=== PATIENT | male | born 1950 | race Caucasian/White ===

== ENCOUNTER 2023-03-18 18:25 | Inpatient (IN) | payer OTHER, SELFPAY ==
[2023-03-18] VITALS (9 sets, daily range): BP systolic 119–165; BP diastolic 64–84; BMI 25.4; BMI 24.6
[2023-03-18 12:41] LABS: % Basophils 0.4 % (0-2); % Eosinophils 5.4 % (0-6); % Immature Granulocytes 0.3 % (0-0.5); % Lymphocytes 20.5 % (20.5-51.1); % Monocytes 9.4 % (1.7-9.3); Absolute Eosinophils 0.4 10^3/uL (0-0.7); Absolute Lymphocytes 1.5 10^3/uL (1.2-3.4); Absolute Monocytes 0.7 10^3/uL (0.1-0.6); Absolute Neutrophils 4.7 10^3/uL (1.4-6.5); Hematocrit 39.7 % (39.0-52.0); Hemoglobin 13.4 g/dL (13.0-18.0); Mean Corp Hgb Conc. 33.8 g/dL (33.0-37.0); Mean Corpuscular Hgb 28.6 pg (27.0-31.0); Mean Corpuscular Volume 84.6 fL (80.0-94.0); Mean Platelet Volume 9.3 fL (7.4-10.4); Nucleated Red Blood Cells % 0 % (-); Platelet Count 220 10^3/uL (130-400); Red Blood Cell Count 4.69 10^6/uL (4.70-6.10); Red Cell Dist. Width 13.2 % (11.5-14.5); White Blood Cell Count 7.4 10^3/uL (4.8-10.8)
[2023-03-18 13:16] LABS: ALT (SGPT) 17 U/L (0-50); AST (SGOT) 22 U/L (17-59); Albumin 4.2 g/dl (3.5-5.0); Alkaline Phosphatase 94 U/L (38-126); Blood Urea Nitrogen 23 mg/dl (9-20); Calcium 9.3 mg/dl (8.4-10.2); Carbon Dioxide 24 mmol/L (22-30); Chloride 102 mmol/L (98-107); Glucose 173 mg/dl (70-99); Potassium 4.4 mmol/L (3.5-5.1); Sodium 134 mmol/L (135-145); Total Bilirubin 1.1 mg/dl (0.2-1.3); Total Protein 6.9 g/dl (6.3-8.2); eGFR 44.93
--- NOTE | 2023-03-18 14:10 | EDRN ---
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
--- NOTE | 2023-03-18 14:52 | ED.GENMED ---
History of Present Illness
General
Chief Complaint: Anal/Rectal Problem
Source: patient
Exam Limitations: none
Time Seen by Provider: 03/18/23 14:09
Nursing documentation reviewed up to this point in time: agreed with
Travel History
Have you had any contact with someone who has COVID-19?: No
Do you have any symptoms of coronavirus? Fever > 100 degrees, chills, cough, shortness of breath, sore throat, loss of taste or smell, muscle aches, or headache?: No
History of Present Illness
History of Present Illness:
The patient is a 72-year-old man reports that he has had at least 3 months of rectal bleeding and pain. Patient reports that today he got very concerned because the bleeding was much more in volume. He denies chest pain or shortness of breath. He
denies blood thinners. He reports over 50 years of smoking. He reports he last had a colonoscopy about 10 years ago and is due for one but is hesitant to get it due to the prep. He also reports that occasionally his stools are very irregular and
are light yellow with mucus in them. He denies abdominal pain. Patient is adamantly convinced he has rectal cancer. He reports he called GI but they cannot see him until this July so he did not want to wait.
Past History
Past History
ED Past Medical History: CAD and HTN
ED Past Surgical History: Other
Social History
Tobacco: Smoker
Alcohol: None
Drug: None
Personal: Other
Living: alone
Employment: Retired
Family History
Family History: Other (Nonsignificant)
Review of Systems
Review of Systems
Allergies reviewed?: Yes
All Other Systems: ROS reviewed and negative except as documented in HPI and ROS
Constitutional: Reports no symptoms
EENT: Reports no symptoms
Respiratory: Reports no symptoms
Cardiac: Reports no symptoms
ABD/GI: Reports other (Rectal pain, rectal bleed)
: Reports no symptoms
Musculoskeletal: Reports no symptoms
Skin: Reports no symptoms
Neurological: Reports no symptoms
Endocrine: Reports no symptoms
Hematologic/Lymphatic: Reports no symptoms
Psychiatric: Reports no symptoms
Phy Exam
Physical Exam
Physical Exam:
Physical Exam
General: no apparent distress, not acutely ill
Neck: supple. no meningeal signs. normal psoterior pharynx
Heart: s1/s2 regular rate and rhythm, no murmur. equal radial pulses.
Lungs: no acute respiratory distress. clear bilaterally
Abdomen: normal bowel sounds. not tender. no CVAT
Neuro: alert and oriented. no focal neurological deficits
Skin: no rash
Psychiatric: well kept. interactive and cooperative
Extremities: no edema. no calf tenderness. negative homans. good distal pulses
Course
Orders/Labs/Results
Orders:
Orders
03/18/23 12:31
Complete Blood Count/With Diff Urgent
Comprehensive Metabolic Panel Urgent
03/18/23 14:52
CT Abd/pel W Iv And Oral Contr Urgent
Comment:
Reason For Exam: rectal pain and bleeding
Iohexol [Omnipaque] See Protocol PO NOW STA
03/18/23 14:53
0.9% Sodium Chloride 1000 ml [Nss] 1,000 ml IV BOLUS
Abnormal Lab Results
03/18/23
12:31
RBC 4.69 L 10^6/uL
(4.70-6.10)
Absolute Monos (auto) 0.7 H 10^3/uL
(0.1-0.6)
Monocytes % 9.4 H %
(1.7-9.3)
Sodium 134 L mmol/L
(135-145)
BUN 23 H mg/dl
(9-20)
Creatinine 1.6 H mg/dL
(0.7-1.3)
Glucose 173 H mg/dl
(70-99)
03/18/23 12:31
03/18/23 12:31
Vital Signs
Initial and Last Documented VS:
Initial Vital Signs
Temp Pulse Resp BP Pulse Ox
98.2 F 85 18 132/78 99
03/18/23 12:23 03/18/23 12:23 03/18/23 12:23 03/18/23 12:23 03/18/23 12:23
Last Documented Vital Signs
Temp Pulse Resp BP Pulse Ox
98.2 F 86 16 138/67 97
03/18/23 12:23 03/18/23 17:32 03/18/23 17:32 03/18/23 17:00 03/18/23 17:32
MDM/Problems Addressed
Differential Diagnosis Includes:
Internal hemorrhoid, external hemorrhoid, rectal mass,
MDM/Problems Addressed:
Patient presents with subacute pain and bleeding from rectum
Chronic conditions affecting care: HTN
Acute Exacerbation and/or Progression of Chronic Illness: HTN
*Pulse Oximetry
Patient hypoxic: no
*EKG
Interpreted by ED Provider?: NA
*Yard Motor Operator Interpretation
Rate: Yard Motor Operator- N/A
*Critical Care Note
Total Time (30-74mins, 75-104mins- exclusive of procedures): Not Applicable
Data Reviewed
Review of Other/Old Records Reveals: Testing (Colonoscopy reviewed from 2013 which shows a polyp and diverticulosis)
Source: patient and family
Further Testing Considered But Not Given:
Patient is hemodynamically stable, however, he is insistent that he be admitted to the hospital due to ongoing rectal bleeding. CAT scan pending.
ED Attending Note
-
Portions of this chart may have been created with voice recognition software.� Occasional wrong word or��sound alike� substitutions may have occurred due to the inherent limitations of voice recognition software.
Discharge Plan
Departure
Patient Disposition: Admit
Date of Disposition: 03/18/23
Time of Disposition: 17:43
Admit to: Med/Surg
Presentation/result/management discussed w/ accepting MD/DO: Hospitalist
Patient with high blood pressure during this ER visit?: Yes
Condition: Good
Covid-19: Not Applicable
Discharge Problem:
Bright red rectal bleeding
Referrals:
Thomas Dasilva MD [Family Provider] -
Interventions
Interventions:
*Risk Screen - Suicide Last Done: 03/18/23 14:11
*General Assessment Last Done: 03/18/23 14:11
*Neglect/Abuse Screening Last Done: 03/18/23 14:11
*ED COVID-19 Vaccine History Last Done: 03/18/23 14:11
KN-Pdvbji-Kmbaffjisq Assessment Last Done: 03/18/23 14:14
ED-Skin Assessment Last Done: 03/18/23 14:14
[2023-03-18] MEDS: OMNIPAQUE 50 ML PO (15:04)
[2023-03-18] MEDS: NSS 1000 IV (15:14)
--- NOTE | 2023-03-18 18:08 | HPS.HSE ---
Family Physician
-
Family Physician: Thomas Dasilva
Chief Complaint
-
Lower GI bleeding
History of Present Illness
72-year-old male here with complaints of on and off rectal bleeding for the past 4 months. Also complaining of rectal pain like someone stuck jalapeno peppers in his rectum.
Denies abdominal pain. Denies nausea vomiting. Last colonoscopy was 10 years ago, had some polyps removed.
Medical History
Past Medical History
Past Medical History: Reports Other
Additional Past Medical History:
Essential hypertension
Hyperlipidemia
CAD/[place]
Hypothyroidism
Remote history of alcoholism
Past Surgical History: Reports None
Social History
Tobacco: Former Smoker
Alcohol: Former
Drug: None
Personal: Single
Living: Alone
Family History
Family History: Not pertinent
Allergies / Home Medications
Allergies reflects when Allergies were last updated in [facility].
Home Medications with original date entered in [facility]
Allergy/Medication List:
Allergies
Allergy/AdvReac Type Severity Reaction Status Date / Time
No Known Allergies Allergy Verified 03/18/23 14:10
Home Medications
atorvastatin 40 mg tablet (Lipitor) 40 mg PO HS 03/18/23
hydrochlorothiazide 25 mg tablet 37.5 mg PO DAILY 03/18/23
levothyroxine 25 mcg tablet (Synthroid) 25 mcg PO DAILY 03/18/23
metoprolol tartrate 50 mg tablet (Lopressor) 50 mg PO DAILY 03/18/23
spironolactone 25 mg tablet 25 mg PO BID 03/18/23
Review of Systems
-
History Source: Patient
A 12 point ROS was completed and negative except as noted: Yes
Abdomen/GI: Reports Bloody Stools
Physical Exam
Vital Signs
Vital Signs
Temp Pulse Resp BP Pulse Ox
98.2 F 86 16 138/67 97
03/18/23 12:23 03/18/23 17:32 03/18/23 17:32 03/18/23 17:00 03/18/23 17:32
Physical Exam
General: Well Developed, Well Nourished, No Apparent Distress and Comfortable
HEENT: NormoCephalic, Anicteric and Moist mucous membranes
Respiratory: Clear
Cardiac: S1/S2 and Regular Rhythm
GI: Soft, Non Tender and Non Distended
Genito-urinary: Deferred by me
Musculoskeletal: No Clubbing, No Cyanosis and No Edema
Skin: Warm and Dry
Neuro: AO x 3
Hematologic/Lymphatic: No Lymphadenopathy
Psych: Calm
Laboratory Results
-
03/18/23 12:31
03/18/23 12:31
Laboratory Results
Total Bilirubin 1.1 mg/dl (0.2-1.3) 03/18/23 12:31
AST 22 U/L (17-59) 03/18/23 12:31
ALT 17 U/L (0-50) 03/18/23 12:31
Alkaline Phosphatase 94 U/L (38-126) 03/18/23 12:31
Impression/Plan
-
Subacute lower GI bleed -admit to [facility]. Consult gastroenterology. Monitor hemoglobin. CT of the abdomen pelvis is concerning for possible annular lesion at the rectosigmoid junction in the lower pelvis. Rule out neoplasm. Extensive
diverticulosis noted. Last colonoscopy was July 2013, multiple polyps noted, diverticulosis, internal hemorrhoids. Plan at that time was to repeat colonoscopy in 5 years but patient did not follow-up.
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 Follow-up with vascular surgery after discharge.
Hyponatremia -hold HCTZ.
Essential hypertension -stable. Resume meds.
Renal insufficiency -possibly CKD stage IIIb. Baseline creatinine unknown.
DM2 without hyperglycemia -not on medications. Check hemoglobin A1c.
Hyperlipidemia -resume atorvastatin.
CAD -history of [place]. He takes aspirin once or twice per week.
Hypothyroidism -continue Synthroid.
Full code
[2023-03-18] MEDS: LIPITOR 40 MG PO (20:33)
[2023-03-18] MEDS: ALDACTONE 25 MG PO (20:34)
[2023-03-18] MEDS: LOPRESSOR 50 MG PO (21:40)
[2023-03-19 07:21] LABS: % Basophils 0.4 % (0-2); % Immature Granulocytes 0.4 % (0-0.5); % Lymphocytes 19.5 % (20.5-51.1); % Monocytes 11.7 % (1.7-9.3); Absolute Eosinophils 0.4 10^3/uL (0-0.7); Absolute Lymphocytes 1.3 10^3/uL (1.2-3.4); Absolute Monocytes 0.8 10^3/uL (0.1-0.6); Absolute Neutrophils 4.2 10^3/uL (1.4-6.5); Hematocrit 39.7 % (39.0-52.0); Mean Corp Hgb Conc. 32.7 g/dL (33.0-37.0); Mean Corpuscular Hgb 28.3 pg (27.0-31.0); Mean Corpuscular Volume 86.3 fL (80.0-94.0); Mean Platelet Volume 9.2 fL (7.4-10.4); Nucleated Red Blood Cells % 0 % (-); Platelet Count 201 10^3/uL (130-400); Red Cell Dist. Width 13.2 % (11.5-14.5); White Blood Cell Count 6.8 10^3/uL (4.8-10.8)
[2023-03-19 07:36] LABS: Troponin I < 0.012 ng/ml
[2023-03-19 07:51] LABS: Blood Urea Nitrogen 18 mg/dl (9-20); Calcium 9.3 mg/dl (8.4-10.2); Carbon Dioxide 29 mmol/L (22-30); Chloride 100 mmol/L (98-107); Estimated Creatinine Clearance 46 ml/min; Glucose 121 mg/dl (70-99); Sodium 136 mmol/L (135-145); eGFR 52.74
[2023-03-19 08:03] VITALS: BP 134/74
[2023-03-19] MEDS: ALDACTONE 25 MG PO ×2 (08:28→20:16)
--- NOTE | 2023-03-19 09:28 | CON.GI ---
Addendum entered and electronically signed by Suzanne Howe MD 03/19/23 16:16:
I saw and examined the patient.
The BEATER OUT or PA's note was reviewed and I agree with the note.
Comment: 72-year-old male with history of hypertension, diabetes, CAD, hypothyroidism presenting with intermittent rectal bleeding in the last 3 to 4 months, bright blood on the toilet tissue, some altered bowel habits with diarrhea or normal formed
stool, some pushing and straining with incomplete evacuation. Intentional weight loss. In the ER, labs without any evidence of anemia or microcytosis, CT scan of the abdomen and pelvis with IV and oral contrast showing possible mild wall
thickening and annular lesion at the rectosigmoid junction, diverticulosis , air-filled appendix.
Colonoscopy in 2013, benign polyps noted.
No family history of colon cancer or polyps that patient knows of.
-Intermittent rectal bleeding with change in bowel habits and abnormal CT scan with mild thickening in the rectosigmoid junction
Rule out mass lesion versus other
Discussed with patient regarding the need for colonoscopy
Patient agreeable. Will prep for colonoscopy for tomorrow.
Original Note:
Consultation
-
Date/Time Consultation Requested: 03/18/231932
Date/Time Consultation Performed: 03/19/23929
Requesting Provider: Delonte Navarrete DO
Performing Provider: ANH Leon, Suzanne Howe MD
Reason for Consultation: rectal bleeding
Medical History
Chief Complaint / HPI
Chief Complaint: rectal bleeding, rectal pain
History of Present Illness:
Pt is a 72yo with hx CAD/[place], HTN, hypothyroidism, NIDDM, prior ETOH abuse, Hyperplastic colon polyps with onset of rectal bleeding for 4 month and rectal pain. On admission CT with liver cysts, diverticulosis, mild wall thickening and possible
annular lesion at rectosigmoid, appendix upper limit of normal, air filled no free fluid, 2cm saccular aneurysm of right common iliac artery and inguinal hernia. hx colonoscopy [address] Burgos 10mm polyp sigmoid, 2 3-5 mm polyps at 15 cm,
diverticulosis, and internal hemorrhoids bx HP polyps. No prior EGD. Pt with difficulty with prep in past.
In reviewing with patient noted with concern for exposure from [place] last few years. He noted about 4 months ago with change in bowel pattern with some loose stools and solid stools and small amount of blood. He also admits to
rectal pain with constant irritation since that time.
Past Medical History
Past Medical History: CAD, HTN, Hypercholesterolemia, Hypothyroidism, NIDDM, [place] and Other (ETOH abuse, benign hyperplastic colon polyps)
Social History
Tobacco: Former Smoker
Alcohol: Former
Drug: Marijuana (nightly use )
Living: Alone
Employment: Retired
Family History
Family History: Other (father [place] unknown type, brother [place], CVA, DM, sister and granddaughter with DM)
Allergies / Home Medications
Allergy/AdvReac Type Severity Reaction Status Date / Time
No Known Allergies Allergy Verified 03/18/23 14:10
Medication Instructions Recorded
atorvastatin 40 mg tablet (Lipitor) 40 mg PO HS High Cholesterol 03/18/23
hydrochlorothiazide 25 mg tablet 37.5 mg PO DAILY Fluid 03/18/23
Retention/Swelling
metoprolol tartrate 50 mg tablet 50 mg PO HS Blood Pressure 03/18/23
(Lopressor)
spironolactone 25 mg tablet 25 mg PO BID Fluid 03/18/23
Retention/Swelling
Review of Systems
-
History Source: Patient
Constitutional: Reports Weight Loss (few lbs)
EENT: Reports No Symptoms
Respiratory: Reports No Symptoms
Cardiac: Reports No Symptoms
Abdomen/GI: Reports Other (change in bowel pattern some regular and loose stools with small amount of blood, rectal pain)
: Reports Other (change in urination with decreased stream)
Musculoskeletal: Reports No Symptoms
Skin: Reports No Symptoms
Neurological: Reports Dizzy
Endocrine: Reports No Symptoms
Hematologic/Lymphatic: Reports Bleeding
Vital Signs
Temp Pulse Resp BP Pulse Ox
97.3 F 76 18 134/74 100
03/19/23 08:03 03/19/23 08:03 03/19/23 08:03 03/19/23 08:03 03/19/23 08:10
Physical Exam
Exam
General: Well Developed, Well Nourished and No Apparent Distress
HEENT: Normocephalic and Anicteric
Respiratory: Clear
Cardiac: Regular Rhythm
GI: Soft and Non Distended
Musculoskeletal: No Clubbing and No Cyanosis
Skin: Warm and Dry
Neuro: Awake, Alert and AO x 3
Psych: Calm
Results
WBC 6.8 10^3/uL (4.8-10.8) 03/19/23 07:02
Hgb 13.0 g/dL (13.0-18.0) 03/19/23 07:02
Hct 39.7 % (39.0-52.0) 03/19/23 07:02
MCV 86.3 fL (80.0-94.0) 03/19/23 07:02
Plt Count 201 10^3/uL (130-400) 03/19/23 07:02
Absolute Neuts (auto) 4.2 10^3/uL (1.4-6.5) 03/19/23 07:02
Sodium 136 mmol/L (135-145) 03/19/23 07:02
Potassium 4.0 mmol/L (3.5-5.1) 03/19/23 07:02
Chloride 100 mmol/L (98-107) 03/19/23 07:02
Carbon Dioxide 29 mmol/L (22-30) 03/19/23 07:02
BUN 18 mg/dl (9-20) 03/19/23 07:02
Creatinine 1.4 mg/dL (0.7-1.3) H 03/19/23 07:02
Calcium 9.3 mg/dl (8.4-10.2) 03/19/23 07:02
Total Bilirubin 1.1 mg/dl (0.2-1.3) 03/18/23 12:31
AST 22 U/L (17-59) 03/18/23 12:31
ALT 17 U/L (0-50) 03/18/23 12:31
Alkaline Phosphatase 94 U/L (38-126) 03/18/23 12:31
Diagnostic Image Results:
03/18/23 CT A/p IV and oral
1. � Hypodensities in the liver most consistent with cysts. Solid organs otherwise unremarkable.
2. � Extensive diverticulosis, most prominent in the sigmoid region. No finding to suggest inflammatory stranding of diverticulitis.
3. � Mild wall thickening and possible annular lesion at the rectosigmoid junction in the lower pelvis. Direct visualization is recommended to exclude neoplasm.
4. � The appendix is at the upper limits of normal, measuring 6 mm in greatest dimension. It is air-filled. There is no free fluid or free air. No fluid collection. This area could also be evaluated at the time of colonoscopy.
5. � Atherosclerotic vascular disease. 2 cm Saccular aneurysm of the right common iliac artery.
Prior GI Procedures:
EGD: none
Colonoscopy: [address] Burgos 10mm polyp sigmoid, 2 3-5 mm polyps at 15 cm, diverticulosis, and internal hemorrhoids bx HP polyps. No prior EGD.
Assessment / Plan
-
Pt is a 72yo with hx CAD/[place], HTN, hypothyroidism, NIDDM, prior ETOH abuse, Hyperplastic colon polyps with onset of rectal bleeding for 4 month and rectal pain. On admission CT with liver cysts, diverticulosis, mild wall thickening and possible
annular lesion at rectosigmoid, appendix upper limit of normal, air filled no free fluid, 2cm saccular aneurysm of right common iliac artery and inguinal hernia. hx colonoscopy [address] Burgos 10mm polyp sigmoid, 2 3-5 mm polyps at 15 cm,
diverticulosis, and internal hemorrhoids bx HP polyps. No prior EGD. Pt with difficulty with prep in past.
-change in bowel pattern with some rectal bleeding
-rectal pain - declined rectal exam 03/19
-CT with mild wall thickening and possible annular lesion rectosigmoid
-appendix upper limit of normal
-2 cmm saccular aneurysm right common iliac artery
-inguinal hernia
--increased creat on admission
-hx hyperplastic polyps
-concern for hx exposure for [facility]
other medical problems:
-CAD/[place]
-NIDDM diet controlled
-HTN
-hypothyroidism
-prior ETOH and tobacco abuse
-current Marijuana use
-liver cyst on CT
PLAN:
Etiology of change in bowel with rectal bleeding with concern for possible annular lesion on CT vs other
reviewed CT at length with patient and copy given to him
pt declined rectal exam but hesitant for colonoscopy with difficulty with prep in past
reviewed pt option of inpatient with monitoring, antiemetic etc as needed vs outpatient testing, vs alternative flex (but some limitation of looking at appendix as noted on CT), virtual/Cologuard that would not be best testing at this time
also reviewed with patient he has the right to decline all testing
Pt currently states will consider options but leaning towards proceeding
advised to space out prep and use antiemetics as needed for hx nausea with prep in past
hbg stable
cont clear diet
will follow
-
-
Thank you for consultation and allowing me to participate in the patient's care. Please call the law firm consultant GI physician during the after hours with any questions or concerns.
[2023-03-19] MEDS: NULYTELY SOLUTION 4 LITERS PO (11:05)
--- NOTE | 2023-03-19 13:41 | W.PN.HOSP.TC ---
Today's Communication/Plan
-
check TSH
cont prepping for colonoscopy
apprec GI
Assessment / Plan
Assessment / Plan
pt is a 72 year old male
Subacute lower GI bleed--apprec gastroenterology.� Monitor hemoglobin.� CT of the abdomen pelvis is concerning for possible annular lesion at the rectosigmoid junction in the lower pelvis.� Rule out neoplasm.� Extensive diverticulosis noted.� Last
colonoscopy was July 2013, multiple polyps noted, diverticulosis, internal hemorrhoids.� Plan at that time was to repeat colonoscopy in 5 years but patient did not follow-up--prepping for colonoscopy tomorrow
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
Hyponatremia (once per all values observed)--hold HCTZ.
Essential hypertension -stable--cont meds as able
Renal insufficiency -possibly CKD stage IIIb.� Baseline creatinine unknown.
DM2 without hyperglycemia--not on medications.� Check hemoglobin A1c.
Hyperlipidemia -resume atorvastatin.
CAD -history of [place].� He takes aspirin once or twice per week.
Hypothyroidism --apparently does not take synthroid per med list--check TSH
Full code
Anticipated Discharge: 24 - 48 hours
Subjective/Interval History
-
Date of Service: March 19, 2023
pt without c/o--concerned about prepping for colonoscopy
Objective Data
-
Labs:
Laboratory Results
03/19/23
07:02
WBC 6.8
Hgb 13.0
Hct 39.7
Plt Count 201
Sodium 136
Potassium 4.0
Chloride 100
Carbon Dioxide 29
BUN 18
Creatinine 1.4 H
Glucose 121 H
Calcium 9.3
Vital Signs:
max temp for 24 hours
03/18/23
23:45
Temp 98.2 F
Vital Signs
Temp Pulse Resp BP Pulse Ox
97.3 F 76 18 134/74 100
03/19/23 08:03 03/19/23 08:03 03/19/23 08:03 03/19/23 08:03 03/19/23 08:10
Review of Systems
-
All other systems: Reviewed and negative
Physical Exam
-
General: Well Developed, Well Nourished and No Apparent Distress
HEENT: Normocephalic and Atraumatic
Respiratory: Clear to Auscultation; Negative Wheezes or Rhonchi
Cardiac: Regular Rhythm and S1/S2; Negative Murmur
GI: Soft, Nontender, Nondistended and Normal Bowel Sounds
Musculoskeletal: No Clubbing, No Cyanosis and No Edema
Neuro: Awake and Alert
[2023-03-19 15:14] VITALS: BP 135/76
--- NOTE | 2023-03-19 16:38 | CM ---
Patient seen at bedside with physician. Patient children also present. Patient for colonoscopy and discharge home when medically appropriate. Patient may need VN supports pending functional assessments. CM will continue to follow for discharge
planning needs.
Plan; home with family; watch for home VN needs.
[2023-03-19] MEDS: LOPRESSOR 50 MG PO (20:15)
[2023-03-19] MEDS: LIPITOR 40 MG PO (20:15)
--- NOTE | 2023-03-19 22:26 | PTCARENOTE ---
pt is refusing to drink prep- states 'he been through this before, and he is only going to finish the 1 cup in front of him'. reminded pt the importance of the prep and while drinking all of it will help clear him out. 'pt responded w/ he hasn't had
solid food. so he will be fine'.
[2023-03-19 23:21] VITALS: BP 143/84
[2023-03-20] VITALS (15 sets, daily range): BP systolic 12–141; BP diastolic 65–92
[2023-03-20 07:36] LABS: Hematocrit 40.5 % (39.0-52.0); Hemoglobin 13.3 g/dL (13.0-18.0); Mean Corp Hgb Conc. 32.8 g/dL (33.0-37.0); Mean Corpuscular Hgb 28.3 pg (27.0-31.0); Mean Corpuscular Volume 86.2 fL (80.0-94.0); Mean Platelet Volume 9.6 fL (7.4-10.4); Platelet Count 225 10^3/uL (130-400); Red Cell Dist. Width 13.1 % (11.5-14.5); White Blood Cell Count 7.2 10^3/uL (4.8-10.8)
--- NOTE | 2023-03-20 07:39 | PTCARENOTE ---
pt only drank 3 cups of prep. yellow tinged w/ mucus.
[2023-03-20 07:43] LABS: INR 1.14; PT 14.4 Sec (11.4-14.6)
[2023-03-20 07:52] LABS: Chloride 101 mmol/L (98-107); Potassium 4.4 mmol/L (3.5-5.1); Sodium 134 mmol/L (135-145)
[2023-03-20] MEDS: ALDACTONE 25 MG PO ×2 (07:52→20:26)
[2023-03-20 08:02] LABS: ALT (SGPT) 16 U/L (0-50); AST (SGOT) 25 U/L (17-59); Alkaline Phosphatase 97 U/L (38-126); Blood Urea Nitrogen 16 mg/dl (9-20); Calcium 9.2 mg/dl (8.4-10.2); Carbon Dioxide 23 mmol/L (22-30); Estimated Creatinine Clearance 43 ml/min; Glucose 105 mg/dl (70-99); Total Bilirubin 1.4 mg/dl (0.2-1.3); Total Protein 6.7 g/dl (6.3-8.2); eGFR 48.55
[2023-03-20 08:18] LABS: TSH Reflex To Free T4 1.69 uIU/ml (0.47-4.68)
--- NOTE | 2023-03-20 11:04 | CON.CRS ---
Consultation
-
Date/Time Consultation Requested: 03/20/2023, 10:48
Date/Time Consultation Performed: 03/20/2023, 12:00
Requesting Provider: Dorina Hussein MD
Performing Provider: Darrell Askew MD
Reason for Consultation: hemorrhoids
Medical History
-
Chief Complaint: rectal bleeding
History of Present Illness:
72yo male presents to the ER on 03/18/2023 complaining of rectal bleeding for the past four months and rectal pain. He denies abdominal pain, nausea, or vomiting. He also states that 4 months ago he had a change in bowel pattern with some loose
stools and solid stools and some anal bleeding when he wipes. He also describes some 'lemon jello gel' that occasionally is present when he wipes. CT A/P shows hypodensities in the liver consistent with cysts, �extensive diverticulosis, most
prominent in the sigmoid region. No finding to suggest inflammatory stranding of diverticulitis, mild wall thickening and possible annular lesion at the rectosigmoid junction in the lower pelvis.
Colonoscopy today showed a thrombosed external hemorrhoids (hard palpable lesion) found on digital rectal exam. A 9 mm polyp was found in the descending colon. The polyp was sessile. Multiple small-mouthed diverticula were found in the sigmoid colon
and descending colon. Internal hemorrhoids were found during retroflexion. The hemorrhoids were medium-sized and Grade I. We have been consulted for further opinion regarding the hard lesion on MANDI.
Past Medical History
Past Medical History: CAD, HTN, Hypercholesterolemia, Hypothyroidism, NIDDM and [place]
Past Surgical History: None
Social History
Tobacco: Former Smoker
Alcohol: Former
Drug: Marijuana
Family History
Family History: Reviewed & Not Pertinent
Allergies / Home Medications
Allergy/AdvReac Type Severity Reaction Status Date / Time
No Known Allergies Allergy Verified 03/18/23 14:10
Medication Instructions Recorded Confirmed Type
atorvastatin 40 mg tablet (Lipitor) 40 mg PO HS High Cholesterol 03/18/23 03/18/23 History
hydrochlorothiazide 25 mg tablet 37.5 mg PO DAILY Fluid 03/18/23 03/18/23 History
Retention/Swelling
metoprolol tartrate 50 mg tablet 50 mg PO HS Blood Pressure 03/18/23 03/18/23 History
(Lopressor)
spironolactone 25 mg tablet 25 mg PO BID Fluid 03/18/23 03/18/23 History
Retention/Swelling
Review of Systems
-
History Source: Patient
Abdomen/GI: Bloody Stools and Other (anal pain, anal discharge)
A 10 point review of systems was completed, and was negative except as per HPI.
Physical Exam
Vital Signs
Temp 97.0 F 03/20/23 10:45
Pulse 86 03/20/23 10:45
Resp Rate 15 03/20/23 10:45
Blood pressure 122/72 03/20/23 10:45
SaO2 98 03/20/23 10:45
03/19/23 03/20/23 03/21/23
06:59 06:59 06:59
Actual Weight 75.523 kg
Body Mass Index (BMI) 24.6
Lab Results / Allergies
03/20/23 06:29
03/20/23 06:29
WBC 7.2 10^3/uL (4.8-10.8) 03/20/23 06:29
Hgb 13.3 g/dL (13.0-18.0) 03/20/23 06:29
Hct 40.5 % (39.0-52.0) 03/20/23 06:29
Plt Count 225 10^3/uL (130-400) 03/20/23 06:29
Abs Immat Gran (auto) 0.0 10^3/uL (0-0.05) 03/19/23 07:02
Neutrophils % 62.0 % (42.2-75.2) 03/19/23 07:02
Allergy/AdvReac Type Severity Reaction Status Date / Time
No Known Allergies Allergy Verified 03/18/23 14:10
Physical Exam
General: Well Developed and Well Nourished
GI: Soft, Non Tender and Normal Bowel Sounds
Rectal: Other (inspection: a few comedones around the anal area, small pliable posterior lesion near the anus. On MANDI, a hard anterior mass noted, no blood on fingertip. )
Neuro: AO x 3
Data Reviewed
-
Medical Tests (Nuc Med, Echo etc): Image Personally Visualized and interpreted, Report Reviewed by me and Discussed with Physician
Labs: Labs Reviewed by me, Discussed with Physician and Discussed with Patient
Old Records: Reviewed
Assessment / Plan
-
Assessment: 72yo male with a 4 month history of anal bleeding and pain, with hard anal mass found on MANDI today during a colonoscopy and exam
Plan:
Discussed situation with patient at bedside. Given the hard mass on exam, will take patient today for an exam under anesthesia with biopsy. Patient is in agreement. Remain NPO for now. Anticipate OR later this afternoon.
--- NOTE | 2023-03-20 14:43 | CM ---
Patient seen, reports no concerns at this time. Per medical consultation, patient N.P.O., patient scheduled today for an exam under anesthesia with biopsy. CM will continue to follow for discharge planning needs, watch for VN needs.
Plan; home no needs, watch for VN needs.
--- NOTE | 2023-03-20 14:48 | W.PN.HOSP.TC ---
Today's Communication/Plan
-
apprec GI s/p colonoscopy
apprec CRS going for exam and biopsies
Assessment / Plan
Assessment / Plan
pt is a 72 year old male
Subacute lower GI bleed--apprec GI--s/p colonoscopy with thrombosed hemorrhoids recommend colorectal surgery for exam as hard palpable lesion found on digital exam--� CT of the abdomen pelvis concerning for possible annular lesion at the
rectosigmoid junction in the lower pelvis--- Last colonoscopy was July 2013, multiple polyps noted, diverticulosis, internal hemorrhoids--was to repeat colonoscopy in 5 years but patient did not follow-up--apprec CRS, going for exam and biopsies
under anesthesia
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
Hyponatremia (once per all values observed)--hold HCTZ.
Essential hypertension -stable--cont meds as able
Renal insufficiency -possibly CKD stage IIIb.� Baseline creatinine unknown.
DM2 without hyperglycemia--not on medications.� Check hemoglobin A1c.
Hyperlipidemia -resume atorvastatin.
CAD -history of IA.� He takes aspirin once or twice per week.
Hypothyroidism --apparently does not take synthroid per med list-- TSH WNL
Full code
Anticipated Discharge: Within 24 hours
Subjective/Interval History
-
Date of Service: March 20, 2023
pt going for exam under anesthesia
Objective Data
-
Labs:
Laboratory Results
03/20/23
06:29
WBC 7.2
Hgb 13.3
Hct 40.5
Plt Count 225
PT 14.4
INR 1.14
Sodium 134 L
Potassium 4.4
Chloride 101
Carbon Dioxide 23
BUN 16
Creatinine 1.5 H
Glucose 105 H
Calcium 9.2
Total Bilirubin 1.4 H
AST 25
ALT 16
Alkaline Phosphatase 97
Vital Signs:
Selected Entries
03/20/23
11:15
Temp 97.6 F
Vital Signs
Temp Pulse Resp BP Pulse Ox
97.6 F 71 18 128/76 100
03/20/23 11:15 03/20/23 11:15 03/20/23 11:15 03/20/23 11:15 03/20/23 11:15
I&O
03/19/23 03/20/23 03/21/23
06:59 06:59 06:59
Intake Total 1080 / 1080
Balance 1080 / 1080
Review of Systems
-
All other systems: Reviewed and negative
Physical Exam
-
General: Well Developed, Well Nourished and No Apparent Distress
HEENT: Normocephalic and Atraumatic
Respiratory: Clear to Auscultation; Negative Wheezes
Cardiac: Regular Rhythm and S1/S2; Negative Murmur
GI: Soft, Nontender, Nondistended and Normal Bowel Sounds
Musculoskeletal: No Clubbing, No Cyanosis and No Edema
Neuro: Awake
Psych: Calm
--- NOTE | 2023-03-20 16:35 | W.IMMPOSTOP ---
Surgical Immed Post Op Note
-
Primary Surgeon: Darrell Askew MD
Assisting Surgeon: None
Pre-op Diagnosis: Anal mass
Post-op Diagnosis: Anal mass
Procedure Performed: Flexible sigmoidoscopy, exam under anesthesia, biopsy of anal mass
Anesthesia Type: MAC with local
Specimen / Cultures: Anal mass, anal mass Derik-Cut biopsies X5
Estimated Blood Loss: 5 mL
Complications: None
Operative Findings: proximal anal canal/distal rectal mass; palpable from the intersphincteric groove to just above the dentate line, measuring about 2.5 cm; anal mass appendage was noted and excised for pathology; then performed Derik-Cut core needle
biopsies x 5; hemostasis assured and Surgicel left in the anal canal
[2023-03-20 16:38] LABS: Glucose - Point of Care 87 mg/dl (70-99)
--- NOTE | 2023-03-20 16:39 | OR.RPT ---
Operative Report
Operative Report
DATE OF OPERATION: 03/20/2023
�
SURGEON:� Darrell Askew MD
�
PREOPERATIVE DIAGNOSIS: Anal pain, anal mass
�
POSTOPERATIVE DIAGNOSIS: Anal pain, anal mass
�
OPERATION: Exam under anesthesia, flexible sigmoidoscopy, diagnostic anoscopy with Derik-Cut core biopsy, bilateral pudendal nerve block
�
ASSISTANTS:
1.� None
�
ANESTHESIA: MAC w/ local
�
ESTIMATED BLOOD LOSS: 5 mL
�
FINDINGS:
1.� Approximately 2.5 cm x 2.0 cm anal mass with ulceration noted at the dentate line; located in the right anterior quadrant and extending from the intersphincteric groove to just proximal to the dentate line
2.� On retroflexion during sigmoidoscopy, the rectal mucosa was noted protruding at the level of the anorectal ring, likely representing the anal mass
�
SPECIMENS:
1.� Anal mass biopsy
2. Anal mass Derik-Cut biopsies
�
DRAINS: None
�
COMPLICATIONS: None
�
INDICATIONS:� The patient is a 72-year-old male who presented to [facility] with 3 to 4 months of perianal pain and spotting of blood with BMs. A CT scan was done showing concern for thickening of the rectosigmoid. A colonoscopy was done
and no mass was noted at the rectosigmoid junction. However, a hard mass was noted in the anal canal. On my exam, there is a hard, nonmobile mass in the proximal anal canal in the right anterior position. Therefore, the patient was recommended to
have surgery for exam under anesthesia and possible biopsies.
The operation was discussed with the patient in detail, including the risks, benefits and alternatives. Risks described included, but not limited to bleeding, infection, damage to nearby structures such as the anal sphincter, fecal incontinence,
urinary retention, and anesthetic risks. The patient understood and agreed to proceed. The consent was signed and placed in the chart.
�
PROCEDURE IN DETAIL:� The patient was taken to the operating room and placed on the left lateral position on the hospital bed. Sequential compression devices were placed bilaterally.� Sedation was commenced without complication. A time-out was then
performed verifying the correct patient, procedure, operative site, positioning, and special equipment.
I began with the flexible sigmoidoscopy.� A digital rectal exam was done, confirming a right anterior hard mass.� The sigmoidoscope was passed transanally until about 15 cm without difficulty to the rectosigmoid junction.� There was stool residue
within the rectum but overall the mucosa was adequately evaluated.� No intraluminal pathology was noted at the rectosigmoid junction or in the remainder of the rectum.� Retroflexion showed internal hemorrhoids except for an area of protruding rectal
mucosa with some nodularity and erythema, likely representing the anal mass.
Next, I proceeded with the exam under anesthesia. The patient was carefully moved on to the operating table in prone position. Patient was secured with a seatbelt over the upper back and seatbelt over the lower legs, and the arms were secured to
arm boards. The buttocks were taped apart. The perineum was prepped and draped in the usual fashion.� Local anesthesia used was a mixture of 60 mL of 0.25% Marcaine and 0.6 mL of dexamethasone.� 40 mL was injected perianally at the beginning of the
case.
The anorectal exam was performed assessing all four quadrants of the anal canal using Hill-Bosch retractors in progressively increasing size.� There were moderate to large size internal hemorrhoids circumferentially that were not irritated or
bleeding. In the right anterior position, there was a hard, non-mobile, ulcerated mass, approximately 2.5 cm longitudinally and 2.0 cm wide. The ulceration was noted at the dentate line. The mass extended a few millimeters proximal to this and
distally to the intersphincteric groove. There was no associated anal stenosis. There was a small appendage that was emanating from the midportion of the mass, which was excised using Metzenbaum scissors and sent for pathology. Next, using the
large Hill-Bosch for visualization, 5 Derik-Cut core biopsies were obtained, each from a different location of the mass.� Hemostasis was achieved after holding pressure for approximately about a minute. Surgicel was placed in the anal canal
prophylactically. At the end of the case, the remaining 20 mL of local were injected.� 5 mL was injected bilaterally for a pudendal nerve block. 10 mL was injected around the surgical site and perianally.
At this point, the procedure was complete. All needle, sponge and instrument counts were correct. The patient tolerated the procedure well and was transferred to the recovery room in stable condition with gauze dressing in place secured with silk
tape.
DICTATED BY:� Darrell Askew MD
[2023-03-20] MEDS: DEMEROL 12.5 MG IV (17:13)
[2023-03-20] MEDS: LOPRESSOR 50 MG PO (20:42)
[2023-03-20] MEDS: LIPITOR 40 MG PO (20:42)
[2023-03-21 07:00] VITALS: BP 142/83
[2023-03-21 08:49] LABS: Hematocrit 41.4 % (39.0-52.0); Hemoglobin 13.4 g/dL (13.0-18.0); Mean Corp Hgb Conc. 32.4 g/dL (33.0-37.0); Mean Corpuscular Volume 86.6 fL (80.0-94.0); Mean Platelet Volume 9.7 fL (7.4-10.4); Platelet Count 234 10^3/uL (130-400); Red Blood Cell Count 4.78 10^6/uL (4.70-6.10); Red Cell Dist. Width 13.1 % (11.5-14.5); White Blood Cell Count 9.3 10^3/uL (4.8-10.8)
[2023-03-21] MEDS: ALDACTONE 25 MG PO (08:50)
[2023-03-21 09:44] LABS: Blood Urea Nitrogen 27 mg/dl (9-20); Calcium 9.7 mg/dl (8.4-10.2); Carbon Dioxide 23 mmol/L (22-30); Chloride 100 mmol/L (98-107); Estimated Creatinine Clearance 38 ml/min; Glucose 130 mg/dl (70-99); Potassium 4.5 mmol/L (3.5-5.1); Sodium 137 mmol/L (135-145); eGFR 41.78
--- NOTE | 2023-03-21 10:58 | W.PN.CRS1 ---
Today's Communication / Plan
-
Okay for discharge from our perspective
Await path
Assessment/Plan
-
POD#1 Flexible sigmoidoscopy, exam under anesthesia, biopsy of anal mass
1. Vitals normal.
2. OR pathology pending.
3. Tolerating a diet.
4. Okay for discharge from our standpoint. He can follow-up with the office of Dr. Askew in 2 weeks to discuss his pathology. Discussed with patient who is in agreement.
Subjective Data
Procedure
Flexible sigmoidoscopy, exam under anesthesia, biopsy of anal mass
Subjective Data
Date of Service: March 21, 2023
Patient states he has no bleeding. He is little sore today. He otherwise has no complaints.
Objective Data
-
Vital Signs
Temp Pulse Resp BP Pulse Ox
98.1 F 77 18 142/83 98
03/21/23 07:00 03/21/23 07:00 03/21/23 07:00 03/21/23 07:00 03/21/23 07:00
Intake & Output
03/20/23 03/21/23 03/22/23
06:59 06:59 06:59
Intake Total 1080 / 1080 400 / 400 480 / 480
Balance 1080 / 1080 400 / 400 480 / 480
Intake:
Oral fluids 1080 / 1080 400 / 400 480 / 480
Other:
Number of approximated MODERATE 2 2
amounts of urine
Lab Results
03/21/23 08:17
03/21/23 08:17
Physical Exam
-
General: No Acute Distress and AOx3
Abdomen: Soft, Non Distended and Non Tender
Wound: Dressing in Place
--- NOTE | 2023-03-21 13:30 | W.PN.HOSP.TC ---
Today's Communication/Plan
-
d/c
Assessment / Plan
Assessment / Plan
pt is a 72 year old male
Subacute lower GI bleed--apprec GI--s/p colonoscopy with thrombosed hemorrhoids recommend colorectal surgery for exam as hard palpable lesion found on digital exam--� CT of the abdomen pelvis concerning for possible annular lesion at the
rectosigmoid junction in the lower pelvis--- Last colonoscopy was July 2013, multiple polyps noted, diverticulosis, internal hemorrhoids--was to repeat colonoscopy in 5 years but patient did not follow-up--apprec CRS, s/p biopsies under anesthesia
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
Hyponatremia--hold HCTZ, if wishes to start back then fluid restrict
Essential hypertension -stable--cont meds as able
Renal insufficiency -possibly CKD stage IIIb.� Baseline creatinine unknown.
DM2 without hyperglycemia--not on medications.� Check hemoglobin A1c.
Hyperlipidemia -resume atorvastatin.
CAD -history of IA.� He takes aspirin once or twice per week.
Hypothyroidism --apparently does not take synthroid per med list-- TSH WNL
Full code
Anticipated Discharge: Today
Subjective/Interval History
-
Date of Service: March 21, 2023
ok for d/c
Objective Data
-
Labs:
Laboratory Results
03/21/23
08:17
WBC 9.3
Hgb 13.4
Hct 41.4
Plt Count 234
Sodium 137
Potassium 4.5
Chloride 100
Carbon Dioxide 23
BUN 27 H
Creatinine 1.7 H
Glucose 130 H
Calcium 9.7
Vital Signs:
max temp for 24 hours
03/20/23
20:24
Temp 99 F
Vital Signs
Temp Pulse Resp BP Pulse Ox
98.1 F 77 18 142/83 98
03/21/23 07:00 03/21/23 07:00 03/21/23 07:00 03/21/23 07:00 03/21/23 07:00
I&O
03/20/23 03/21/23 03/22/23
06:59 06:59 06:59
Intake Total 1080 / 1080 400 / 400 480 / 480
Balance 1080 / 1080 400 / 400 480 / 480
Review of Systems
-
All other systems: Reviewed and negative
Physical Exam
-
General: Well Developed, Well Nourished and No Apparent Distress
HEENT: Normocephalic and Atraumatic
Respiratory: Clear to Auscultation; Negative Wheezes, Rhonchi or Crackles
Cardiac: Regular Rhythm and S1/S2; Negative Murmur
GI: Soft, Nontender, Nondistended and Normal Bowel Sounds
Musculoskeletal: No Clubbing, No Cyanosis and No Edema
Neuro: Awake
--- NOTE | 2023-03-21 15:36 | CM ---
Patient seen at bedside with physician. IMM completed and patient for discharge home with his son today. CM will continue to follow for discharge planning needs.
Plan; home with no needs.
--- NOTE | 2023-03-22 06:48 | W.DCSUMMARY ---
Discharge Summary
Discharge Data
Date of Admission: 03/18/23
Date of Discharge: 03/21/23
-
Pending Results: Yes
Additional Pending Results:
Pathology results from biopsies taken 03/21/2023
Hospital Course
Primary care physician : Thomas Dasilva
Principal Discharge diagnosis : Subacute lower GI bleed due to to rectal mass, incidental right common iliac artery saccular aneurysm, hyponatremia
Chronic Discharge diagnosis : Essential hypertension, chronic kidney disease stage IIIb likely, type 2 diabetes without hyperglycemia, hyperlipidemia, coronary artery disease, history of hypothyroidism
Hospital Course : Patient is a 72-year-old male who had complaints of rectal bleeding on and off for the past 4 months. He also complained of rectal pain like someone 'stuck jalapeno peppers in his rectum'. He denied abdominal pain, nausea,
vomiting. Last colonoscopy was 10 years ago but apparently was supposed to have a repeat colonoscopy sooner than this but patient admits he did not follow-up. Patient was admitted.
Problem #1: Subacute lower GI bleed due to rectal mass. Patient was admitted and seen in consultation by GI. Patient underwent colonoscopy which showed thrombosed hemorrhoids however, colorectal surgery was consulted due to a hard palpable lesion
found on digital rectal exam. CAT scan of the abdomen and pelvis was done which showed concern for possible annular lesion at the rectosigmoid junction in the lower pelvis. As mentioned, last colonoscopy was July 2013. He was to repeat a
colonoscopy 5 years after that but the patient did not follow-up. Colorectal surgery did see the patient and patient was taken for exam and biopsy under anesthesia. Biopsies are pending at this time. Hemoglobin remained stable at 13.4. Follow-up
as already scheduled with colorectal surgery.
Problem #2: Incidental right common iliac artery saccular aneurysm. This was found incidentally on his CAT scan. He should follow-up with vascular surgery.
Problem #3: Hyponatremia. Patient normally takes hydrochlorothiazide which can drop the sodium. Patient's admitting sodium level was 134. Hydrochlorothiazide was placed on hold on admission. I had long conversations with the patient regarding
the hydrochlorothiazide, it being on hold, consideration for stopping at discharge especially in light of the fact that he may have a new cancer which can also drop sodium. He trusts his renal doctor implicitly and therefore I have recommended that
if he decides to go back on the hydrochlorothiazide that a fluid restriction would be initiated to 1200 mL/day. Otherwise, it would be reasonable to hold the hydrochlorothiazide and he should discuss with his renal doctor whether or not to restart
this medication.
Problem #4: All other medical issues. These include Essential hypertension, chronic kidney disease stage IIIb likely, type 2 diabetes without hyperglycemia, hyperlipidemia, coronary artery disease, history of hypothyroidism. These medical issues
were stable during his hospitalization. Medications were continued as able. In regards to his hypothyroidism. Patient is not on any medications. In regards to his chronic kidney disease, patient's creatinine has been 1.4-1.7. His last numbers
here were in 2019. Therefore, baseline creatinine is truly unknown. We are presuming this is chronic kidney disease stage IIIb.
Patient is stable for discharge home at this time. If there are any questions regarding this dictation or his hospital stay, please not hesitate to call. Our office number is [phone].
Time for discharge 37 minutes.
Important imaging findings :
CT SCAN ABDOMEN/PELVIS IMPRESSION:
1. � Hypodensities in the liver most consistent with cysts. Solid organs otherwise unremarkable.
2. � Extensive diverticulosis, most prominent in the sigmoid region. No finding to suggest inflammatory stranding of diverticulitis.
3. � Mild wall thickening and possible annular lesion at the rectosigmoid junction in the lower pelvis. Direct visualization is recommended to exclude neoplasm.
4. � The appendix is at the upper limits of normal, measuring 6 mm in greatest dimension. It is air-filled. There is no free fluid or free air. No fluid collection. This area could also be evaluated at the time of colonoscopy.
5. � Atherosclerotic vascular disease. 2 cm Saccular aneurysm of the right common iliac artery.
Procedure findings :
COLORECTAL SURGERY FINDINGS:
1.� Approximately 2.5 cm x 2.0 cm anal mass with ulceration noted at the dentate line; located in the right anterior quadrant and extending from the intersphincteric groove to just proximal to the dentate line
2.� On retroflexion during sigmoidoscopy, the rectal mucosa was noted protruding at the level of the anorectal ring, likely representing the anal mass
�SPECIMENS:
1.� Anal mass biopsy
2.� Anal mass Derik-Cut biopsies
Discharge Plan
-
Patient Disposition: Home (Routine Discharge)
Discharge Diagnosis/Procedures: Subacute lower GI bleed, rectal mass noted status post biopsies, incidental right common iliac artery saccular aneurysm, hyponatremia, essential hypertension, renal insufficiency versus chronic kidney disease stage
IIIb (baseline creatinine unknown), type 2 diabetes mellitus without hyperglycemia, hyperlipidemia, coronary artery disease with history of myocardial infarction, hypothyroidism
Condition: Good
Diet: As tolerated and Regular
Activity: As tolerated
Driving Restrictions: As prior to admission
Bathing Restrictions: None
Referrals:
Tien Viramontes MD [Active] - in two to three weeks (aneurysm noted in right common iliac artery)
Thomas Dasilva MD [Family Provider] - in less than 1 week
Darrell Askew MD [Active] - in two weeks
Ramona Botello MD [Active] - in one to two weeks (hospital follow up)
Prescriptions:
Continued
atorvastatin [Lipitor] 40 mg Tablet
40 mg PO HS
spironolactone 25 mg Tablet
25 mg PO BID
metoprolol tartrate [Lopressor] 50 mg Tablet
50 mg PO HS
Held
hydrochlorothiazide 25 mg Tablet
37.5 mg PO DAILY
Hold Instructions: should you decide to restart this medication, please fluid restrict to 1200 ml/day
Discharge Orders:
Discharge Patient (As Directed); Ordered 03/21/23
Ordered By: Dorina Agustin
Discharge Date and Time
Discharge Date/Time: 03/21/23 15:26
== END 2023-03-21 15:26 | disposition home or self-care (01) | DRG 378 ==
LOC: 4 WEST ACU 18:25
PROVIDERS: Emergency Medicine; Internal Medicine Gastroenterology; Nurse Practitioner Adult Health; Nurse Practitioner Gerontology; Surgery; ADMITTING PHYSICIAN Hospitalist; ATTENDING PHYSICIAN Internal Medicine; CONSULT PHYSICIAN Internal Medicine Gastroenterology; CONSULT PHYSICIAN Surgery; EMERGENCY PHYSICIAN Emergency Medicine; FAMILY PHYSICIAN Family Medicine
PROC: 0DBM8ZX Excision of Descending Colon, Via Natural or Artificial Opening Endoscopic, Diagnostic (ICD-10-PCS; 2023-03-20)
DX: K57.31 Diverticulosis of large intestine without perforation or abscess with bleeding (principal); E87.1 Hypo-osmolality and hyponatremia; D12.4 Benign neoplasm of descending colon; F17.200 Nicotine dependence, unspecified, uncomplicated; I25.10 Atherosclerotic heart disease of native coronary artery without angina pectoris; K64.0 First degree hemorrhoids; K64.5 Perianal venous thrombosis; I12.9 Hypertensive chronic kidney disease with stage 1 through stage 4 chronic kidney disease, or unspecified chronic kidney disease; N18.32 Chronic kidney disease, stage 3b; E11.22 Type 2 diabetes mellitus with diabetic chronic kidney disease; E03.9 Hypothyroidism, unspecified
CPT/HCPCS: 88305; 74177; 80048; 80053; 82962; 83036; 84443; 84484; 85025; 85027; 85610; 88342; 96360; 99285; Q9967

== ENCOUNTER → 2023-04-11 12:28 | Outpatient (REF) | payer OTHER, SELFPAY | LOC: HWRAD 12:28 | PROVIDERS: ATTENDING PHYSICIAN Surgery; FAMILY PHYSICIAN Family Medicine | DX: C21.0 Malignant neoplasm of anus, unspecified (principal) | CPT/HCPCS: 71260; Q9967 ==

== ENCOUNTER → 2023-04-12 10:58 | Outpatient (REF) | payer OTHER, SELFPAY | LOC: MRI 3T 10:58 | PROVIDERS: ATTENDING PHYSICIAN Surgery; FAMILY PHYSICIAN Family Medicine | DX: C21.0 Malignant neoplasm of anus, unspecified (principal) | CPT/HCPCS: 72197; A9575 ==

== ENCOUNTER → 2023-04-25 12:06 | Outpatient (REF) | payer OTHER, SELFPAY ==
[2023-04-25 12:40] VITALS: BP 136/88; BP_SYST 89
[2023-04-25 14:05] VITALS: BP 136/83; BP_SYST 81
== END ==
LOC: RADI 12:06
PROVIDERS: ATTENDING PHYSICIAN Internal Medicine Hematology & Oncology; FAMILY PHYSICIAN Family Medicine
DX: R59.0 Localized enlarged lymph nodes (principal)
CPT/HCPCS: 88305; 38505; 76942; 88333; 88341; 88342

== ENCOUNTER → 2023-04-30 07:19 | Outpatient (REF) | payer OTHER, SELFPAY ==
[2023-04-30 08:02] VITALS: BP 149/80; BP_SYST 73
[2023-04-30] MEDS: ANCEF 10 IV (08:45)
[2023-04-30 09:48] VITALS: BP 126/86; BP_SYST 80
[2023-04-30 10:09] VITALS: BP 136/82
== END ==
LOC: RADI 07:19
PROVIDERS: ATTENDING PHYSICIAN Internal Medicine Hematology & Oncology; FAMILY PHYSICIAN Family Medicine
DX: C20 Malignant neoplasm of rectum (principal)
CPT/HCPCS: 36561; 76937; 77001; 99152; 99153; C1788

== ENCOUNTER → 2023-05-14 12:06 | Outpatient (REF) | payer OTHER, SELFPAY | LOC: PET 12:06 | PROVIDERS: ATTENDING PHYSICIAN Radiology Radiation Oncology | DX: C21.1 Malignant neoplasm of anal canal (principal) | CPT/HCPCS: 78815; A9552 ==

== ENCOUNTER 2023-05-22 06:25 | Day surgery (SDC) | payer OTHER, SELFPAY ==
[2023-05-22 11:34] VITALS: BMI 24.1
[2023-05-22 11:36] VITALS: BMI 24.1
[2023-05-22 11:37] VITALS: BP 135/81
[2023-05-22 11:41] LABS: Glucose - Point of Care 117 mg/dl (70-99)
[2023-05-22] MEDS: NORMOSOL-R 1000 IV (11:43)
[2023-05-22] MEDS: TYLENOL 1000 MG PO (11:43)
[2023-05-22] MEDS: NEURONTIN 300 MG PO (11:43)
[2023-05-22] MEDS: HEPARIN 5000 UNITS SC (11:48)
--- NOTE | 2023-05-22 14:51 | OR.RPT ---
Operative Report
Operative Report
Date of Operation: May 22, 2023
Preoperative Diagnosis: Right LN Localized enlarged - R590
Postoperative Diagnosis: Same
Surgeon: Memo Fuller M.D.
Operation: Excisional biopsy of a right inguinal lymph node
Anesthesia: Local with IV sedation
Estimated Blood Loss: Not specified
Drains: None
Specimen: Right inguinal lymph node
Findings: No obviously enlarged lymph node in the specimen, but a small node was resected and sent to pathology. A large right inguinal hernia was identified
Complications: None
Procedure:
The patient was taken to the operating room and placed in the supine position. After adequate IV sedation was obtained, the right inguinal area was prepped and draped. A 3-centimeter incision was made where the lymph node was visualized on the
intraoperative ultrasound. This area was first injected with 1% lidocaine. The incision was made with #15 blade, which was taken through the skin into the subcutaneous tissue. The fascia was divided and the right femoral artery and vein were
identified where the lymph node was noted on the ultrasound. The vessels were carefully dissected and tissue in this area was dissected and remove. A small node was noted in the tissue, which was sent to pathology. During the dissection and
exploration, a large right inguinal hernia was identified. A general surgeon was consulted for an intraoperative consult who recommended closing the defect for now and doing a definitive repair in the future if it becomes necessary. Hemostasis was
obtained. The fascia, subcutaneous tissue, and skin were re-approximated with sutures. Steri-strips and a dressing were applied. The patient tolerated the procedure well. Final needle and sponge counts were correct. The patient was transferred to
the PACU.
[2023-05-22 14:53] VITALS: BP 129/67
[2023-05-22 15:01] VITALS: BP 119/64
[2023-05-22 15:15] VITALS: BP 135/69
[2023-05-22 15:30] VITALS: BP 120/69
== END 2023-05-22 15:50 | disposition home or self-care (01) ==
LOC: SDS 06:25
PROVIDERS: ATTENDING PHYSICIAN Surgery
DX: R59.0 Localized enlarged lymph nodes (principal); K40.90 Unilateral inguinal hernia, without obstruction or gangrene, not specified as recurrent
CPT/HCPCS: 38531; 88305; 82962; 88341; 88342

== ENCOUNTER → 2023-12-18 09:13 | Outpatient (REF) | payer OTHER, SELFPAY ==
[2023-12-18 09:30] VITALS: BP 146/82; BP_SYST 71
[2023-12-18 10:45] VITALS: BP 153/78
== END ==
LOC: RADI 09:13
PROVIDERS: ATTENDING PHYSICIAN Internal Medicine Hematology & Oncology
DX: Z45.2 Encounter for adjustment and management of vascular access device (principal); C21.1 Malignant neoplasm of anal canal
CPT/HCPCS: 36590

== ENCOUNTER → 2024-04-04 12:38 | Outpatient (REF) | payer OTHER, SELFPAY | LOC: RAD 12:38 | PROVIDERS: ATTENDING PHYSICIAN Nurse Practitioner Primary Care; FAMILY PHYSICIAN Nurse Practitioner Family | DX: C21.1 Malignant neoplasm of anal canal (principal); D63.1 Anemia in chronic kidney disease | CPT/HCPCS: 71250; 74176 ==